=== PATIENT | female | born 1990 | race African-American/Black ===

== ENCOUNTER 2018-06-17 08:47 | Emergency (ER) | payer SELFPAY ==
[2018-06-17] MEDS ORDERED: Midazolam 1 MG/ML 2 ML SDV ONE (10:44)
== END 2018-06-17 10:00 | disposition left against medical advice (07) ==
LOC: MW.ED 08:47
DX: Z53.21 Procedure and treatment not carried out due to patient leaving prior to being seen by health care provider (principal)
CPT/HCPCS: J2250